=== PATIENT | female | born 1955 | race African-American/Black ===

== ENCOUNTER 2017-01-29 18:22 | Observation (INO) | payer MEDICARE, MEDICAID ==
[~2017-01-29 18:22] MED LIST: ALBUTEROL 2.5MG/3ML NEB; ASPIR 8181 MG PO; ATROVENT 0.03%30 ML; BETAMETHASONE V15 GM TOP; COMPAZINE5 MG/TAB PO; CRESTOR40 MG PO; ESTRACE1 M1 PO; FLONASE ALLERG9.9 ML; IMDUR30 MG PO; LASIX20 M1 PO; LEVEMIR100 U/ML SC; LEVOXYL200 MCG PO; LYRICA100 MG/CAP PO; MECLIZINE HCL25 M1 PO; MIRALAX17 G1 PO; NEXIUM40 MG PO; NITROSTAT0.6 MG SL; NORCO 10/3251 TAB PO; NORVASC10 M1 PO; NOVOLOG FL100 UNIT/1 SC; OXYCONTIN10 M2 PO; PROVENTIL HFA6.7 GM INH; SENOKOT-S (SENN1 TAB PO; SYMBICORT 80-46.9 GM INH; ZESTRIL20 M3 PO; ZYRTEC10 MG PO; [UNRECOGNIZED DRUG - OTHER] PO
[2017-01-29] MEDS ORDERED: TESSALON PERLE100 M1 PO (18:57)
[2017-01-29] MEDS ORDERED: URECHOLINE25 M2 PO (18:59)
[2017-01-29] MEDS ORDERED: PLAVIX75 M1 PO (19:10)
[2017-01-29] MEDS ORDERED: PEPCID20 M1 PO (19:12)
[2017-01-29] MEDS ORDERED: TOPROL XL50 M1 PO (19:23)
[2017-01-29] MEDS ORDERED: PROTONIX40 M2 PO (19:27)
[2017-01-29] MEDS ORDERED: RANEXA500 M1 PO (19:35)
[2017-01-29] MEDS ORDERED: VESICARE10 M1 PO (19:38)
[2017-01-29] MEDS ORDERED: ZANAFLEX4 M2 PO (19:39)
[2017-01-29] MEDS ORDERED: NOVOLOG100 UNITS/ (19:40)
[2017-01-29] MEDS ORDERED: LEVEMIR100 UNITS/ SC (19:40)
[2017-01-29] MEDS ORDERED: MOVANTIK25 MG PO (20:11)
[2017-01-29] MEDS ORDERED: AMITIZA24 MC1 PO (20:11)
[2017-01-29] MEDS ORDERED: VOLTAREN100 G1 TOP (20:12)
[2017-01-30 05:02] LABS: ANION GAP 10 mmol/L (0-20); BLOOD UREA NITROGEN 11 mg/dl (6-24); CALCIUM 8.5 mg/dl (8.5-10.5); CARBON DIOXIDE-VENOUS 28 mmol/L (22-32); CHLORIDE 103 mmol/l (96-110); CHOLESTEROL 129 mg/dl (120-200); CREATININE 0.87 mg/dl (0.50-1.10); GLUCOSE 365 mg/dL (70-110); HDL CHOLESTEROL 47 mg/dl (40-60); LDL CHOLESTEROL 28 mg/dl (0-99); POTASSIUM 3.8 mmol/L (3.7-5.1); SODIUM 137 mmol/L (135-145); VLDL 55 mg/dl (0-30); eGFR VALUE FOR BLACK 83 mL/Min
[2017-01-30 05:09] LABS: TRIGLYCERIDES 274 mg/dl (<149)
[2017-01-30 08:34] LABS: BASO % 0.7 % (0-2); EOSINOPHIL ABSOLUTE COUNT 0.1 tho/cmm (0.0-0.7); HCT-HEMATOCRIT 34.6 % (34.0-49.0); HGB-HEMOGLOBIN 11.8 gm/dl (12.0-15.5); IMMATURE GRANULOCYTES ABSOLUTE 0.01 tho/cmm (0-0.03); IMMATURE GRANULOCYTES PERCENT 0.2 % (0-0.3); LYMPH ABSOLUTE COUNT 2.2 tho/cmm (0.8-4.5); MCH (MEAN CORPUSCULAR HGB) 29.9 pg (28.0-32.0); MCHC MEAN CORPUSCULAR HGB CONC 34.1 % (32.0-36.0); MCV (MEAN CELL VOLUME) 87.6 fl (82.0-96.0); MEAN PLATELET VOLUME 9.6 cmc (9.4-12.4); MONO % 9.8 % (0-12); MONOCYTE ABSOLUTE COUNT 0.5 tho/cmm (0.0-1.2); NEUTROPHIL ABSOLUTE COUNT 1.8 tho/cmm (1.6-8.0); NEUTROPHIL-AUTOMATED 1.8 tho/cmm (1.6-8.0); NEUTROPHILS % 38.3 % (40-80); PLATELET COUNT 248 tho/cmm (150-450); RED BLOOD COUNT 3.95 mil/cmm (4.00-5.20); RED CELL DISTRIBUTION WIDTH 12.4 % (12.4-16.4); WHITE BLOOD COUNT 4.6 tho/cmm (4.0-10.0)
[2017-01-31 05:57] LABS: BLOOD UREA NITROGEN 10 mg/dl (6-24); CREATININE 1.04 mg/dl (0.50-1.10); eGFR VALUE FOR BLACK 67 mL/Min
[2017-01-31] MEDS ORDERED: NITROGLYCERIN0.4 M2 SL (09:30)
== END 2017-01-31 10:18 ==
LOC: CAR1 18:22 → PCUA 01-30 15:00
PROVIDERS: Nurse Practitioner Family; ADMIT Internal Medicine
PROC: B2111ZZ Fluoroscopy of Multiple Coronary Arteries using Low Osmolar Contrast (ICD-10-PCS; principal; 2017-01-30)
PROC: 027034Z Dilation of Coronary Artery, One Artery with Drug-eluting Intraluminal Device, Percutaneous Approach (ICD-10-PCS; 2017-01-30)
DX: I25.110 Atherosclerotic heart disease of native coronary artery with unstable angina pectoris (principal); I10 Essential (primary) hypertension; E78.5 Hyperlipidemia, unspecified; E11.9 Type 2 diabetes mellitus without complications; J45.909 Unspecified asthma, uncomplicated; K21.9 Gastro-esophageal reflux disease without esophagitis; E89.0 Postprocedural hypothyroidism; Z79.4 Long term (current) use of insulin; Z79.82 Long term (current) use of aspirin; Z79.899 Other long term (current) drug therapy; Z88.5 Allergy status to narcotic agent; Z88.7 Allergy status to serum and vaccine; Z88.8 Allergy status to other drugs, medicaments and biological substances; Z82.49 Family history of ischemic heart disease and other diseases of the circulatory system; Z80.9 Family history of malignant neoplasm, unspecified; Z82.3 Family history of stroke; Z83.3 Family history of diabetes mellitus; Z85.850 Personal history of malignant neoplasm of thyroid; Z85.43 Personal history of malignant neoplasm of ovary; Z90.710 Acquired absence of both cervix and uterus; Z98.41 Cataract extraction status, right eye; Z98.42 Cataract extraction status, left eye; Z95.5 Presence of coronary angioplasty implant and graft; Z98.890 Other specified postprocedural states
CPT/HCPCS: C1725; C1760; C1769; C1874; C1887; C1894; C9600-LC; G0269; G0378; J1644; J1650; J1815; J2250; J2405; J3010; J7030; Q9967